=== PATIENT | female | born 1995 ===

== ENCOUNTER 2018-07-13 16:30 | Emergency (ER) | payer OTHER ==
[2018-07-13 16:49] VITALS: RESP 16
[2018-07-13] MEDS ORDERED: Lactated Ringer's 1,000 ML IV STA (17:31)
--- NOTE | 2018-07-13 18:24 | ED PDOC ---
HPI: Female Pain Time Seen by Provider: 07/13/18 16:59 Chief Complaint (Nursing): Female Genitourinary Chief Complaint (Provider): Pelvic pain History Per: Patient History/Exam Limitations: no limitations (x) Onset/Duration Of Symptoms: Other (x2 weeks) Current Symptoms Are (Timing): Still Present Additional Complaint(s): 23 year old female, and at about 9 weeks by LMP of May 10, reports lower pelvic pain for about 2 weeks, worsening since onset. Patient reports pain worsens when she sits up or walks and is worse on the left side. Denies urinary frequency and dysuria. She reports mild yellowish discharge which she has had since finding out she was . Patient indicates she has irregular periods. She reports having intermittent vomiting, mostly in the morning associated with nausea. Patient has not started care and states previous pregnancies were normal spontaneous vaginal deliveries. PMD: none Past Medical History Reviewed: Historical Data, Nursing Documentation, Vital Signs Vital Signs: Last Vital Signs Temp 98.5 F 07/13/18 16:48 Pulse 84 07/13/18 16:48 Resp 16 07/13/18 16:48 BP 130/82 07/13/18 16:48 Pulse Ox 100 07/13/18 16:48 - Medical History PMH: No Chronic Diseases - Surgical History Surgical History: No Surg Hx - Family History Family History: States: Hypertension - Social History Current smoker - smoking cessation education provided: No Alcohol: None Drugs: Denies - Home Medications Home Medications: Ambulatory Orders Medication Instructions Recorded Nitrofurantoin Macrocrystals 1 cap PO BID #14 cap 07/13/18 [Macrobid] 21/Iron Fu/Folic Acid 1 each PO DAILY #1 packet 07/13/18 [ Complete Caplet] - Allergies Allergies/Adverse Reactions: Allergies Allergy/AdvReac Type Severity Reaction Status Date / Time No Known Allergies Allergy Verified 07/13/18 16:46 Review of Systems ROS Statement: Except As Marked, All Systems Reviewed And Found Negative (as per HPI) Gastrointestinal: Positive for: Nausea, Vomiting Genitourinary Female: Positive for: Vaginal Discharge (yellowish), Pelvic Pain. Negative for: Dysuria, Frequency Physical Exam - Reviewed Nursing Documentation Reviewed: Yes Vital Signs Reviewed: Yes - Physical Exam Appears: Positive for: No Acute Distress Gastrointestinal/Abdominal: Positive for: Tenderness (mild suprapubic tenderness to palpation and left pelvic tenderness to palpation) - Laboratory Results Result Diagrams: 07/13/18 18:05 - ECG O2 Sat by Pulse Oximetry: 100 (RA) Pulse Ox Interpretation: Normal Medical Decision Making Medical Decision Making: Initial Impression: first trimester abdominal pain Differential includes but not limited to ectopic , ovarian cyst, UTI, round ligament pain Initial Plan: --Type and screen stat --Beta HCG stat --ED urine --ED urine dipstick --CBC --Chlamydia stat --Lactated Ringers 1000ml IV --Tylenol 975mg PO --OB transvaginal US Accession No. : [id number] Patient Name / ID : SKYLAR BRANCH / [id number] Exam Date : 07/13/2018 18:04:07 ( Approved ) Study Comment : Sex / Age : F / 23Y Creator : Miryam Mendoza MD Dictator : Miryam Mendoza MD Verification Engineer : Data Lead : Miryam Mendoza MD Approver2 : Report Date : 07/13/2018 18:58:42 My Comment : Date of service: 07/13/2018 Indication: preg pelvic pain r/o ectopic Comparison: None available Technique: Ob transvaginal ultrasound Findings: The uterus measures approximately 9.8 x 8.9 x 7.3 cm. Anteverted. Cervix length measures approximately 3.0 cm. There is a single intrauterine fetus present. The gestational sac measures 5.4 cm and is compatible with a gestational age of 11 weeks 2 days. The crown-rump length measures 5.1 cm and is compatible with a gestational age of 11 weeks 6 days. Yolk sac is not identified. There is heart motion which measured 166 BPM. The right ovary measures 3.8 x 1.3 x 2.1 cm. The left ovary measures 62.4 x 1.7 x 1.2 cm. Flow was demonstrated to both ovaries. Impression: Live single intrauterine with estimated gestational age 11 weeks 2 days by gestational sac calculation and 11 weeks 6 days by crown-rump length calculation. heart rate 166 bpm. Advise an anomaly screen at 16-18 weeks gestational age Scribe Attestation: Documented by Carlitos Lu acting as a scribe for Radha Leonard MD. Provider Scribe Attestation: All medical record entries made by the Scribe were at my direction and personally dictated by me. I have reviewed the chart and agree that the record accurately reflects my personal performance of the history, physical exam, medical decision making, and the department course for this patient. I have also personally directed, reviewed, and agree with the discharge instructions and disposition. Disposition - Clinical Impression Clinical Impression: Abdominal pain in , UTI (urinary tract infection) - Disposition [facility] - 07[facility]14[facility]18 Disposition: Routine/Home Disposition Time: 20:00 Condition: FAIR Prescriptions: Nitrofurantoin Macrocrystals [Macrobid] 1 cap PO BID #14 cap 21/Iron Fu/Folic Acid [ Complete Caplet] 1 each PO DAILY #1 packet Instructions: Urinary Tract Infection, Adult (DC), Morning Sickness (DC), - The Third Month Print Language: [place] CITIZ[place]
[2018-07-13 18:39] LABS: BASO # 0.1 K/uL (0.0-0.2); EOS % 0.4 % (0.0-4.0); HEMOGLOBIN 12.6 g/dL (12.0-16.0); LYMPH # 1.4 K/uL (1.0-4.3); LYMPH % 26.3 % (20.0-40.0); MEAN CELL VOLUME 84.6 fl (81.0-99.0); MEAN CORPUSCULAR HGB CONC 34.2 g/dL (33.0-37.0); MEAN PLATELET VOLUME 8.7 fl (7.2-11.7); MONO # 0.3 K/uL (0.0-0.8); MONO % 5.5 % (0.0-10.0); NEUT # 3.5 K/uL (1.8-7.0); NEUT % 66.8 % (50.0-75.0); RBC 4.37 Mil/uL (3.80-5.20); RED CELL DISTRIBUTION WIDTH 13.6 % (11.5-14.5); WHITE BLOOD COUNT 5.2 K/uL (4.8-10.8)
--- NOTE | 2018-07-13 19:02 | US ---
Date of service: 07/13/2018 Indication: preg pelvic pain r/o ectopic Comparison: None available Technique: Ob transvaginal ultrasound Findings: The uterus measures approximately 9.8 x 8.9 x 7.3 cm. Anteverted. Cervix length measures approximately 3.0 cm. There is a single intrauterine fetus present. The gestational sac measures 5.4 cm and is compatible with a gestational age of 11 weeks 2 days. The crown-rump length measures 5.1 cm and is compatible with a gestational age of 11 weeks 6 days. Yolk sac is not identified. There is heart motion which measured 166 BPM. The right ovary measures 3.8 x 1.3 x 2.1 cm. The left ovary measures 62.4 x 1.7 x 1.2 cm. Flow was demonstrated to both ovaries. Impression: Live single intrauterine with estimated gestational age 11 weeks 2 days by gestational sac calculation and 11 weeks 6 days by crown-rump length calculation. heart rate 166 bpm. Advise an anomaly screen at 16-18 weeks gestational age
[2018-07-13 19:49] LABS: SQUAMOUS EPITHIAL 7 /hpf (0-5); URINE BACTERIA RARE (<OCC); URINE BILIRUBIN NEGATIVE (NEGATIVE); URINE BLOOD NEGATIVE (NEGATIVE); URINE CLARITY SLIGHTY-CLOUDY (Clear); URINE COLOR YELLOW (YELLOW); URINE GLUCOSE (UA) NEG (Normal); URINE LEUKOCYTE ESTERASE MOD Leu/uL (Negative); URINE PROTEIN NEGATIVE (NEGATIVE); URINE UROBILINOGEN 0.2-1.0 mg/dL (0.2-1.0)
[2018-07-13 20:50] VITALS: BP 129/75; PULSE 80; TEMP 98.3; O2SAT 99
== END 2018-07-13 20:50 | disposition home or self-care (01) ==
LOC: H.ER 16:30
DX: O23.41 Unspecified infection of urinary tract in pregnancy, first trimester (principal); O21.9 Vomiting of pregnancy, unspecified; Z3A.11 11 weeks gestation of pregnancy
CPT/HCPCS: 76817; 81003; 81025; 84702; 85025; 86850; 86900; 87086; 87491; 87591; 99284; J7120